=== PATIENT | male | born 1985 | race Caucasian/White ===

== ENCOUNTER 2021-03-14 17:05 | Emergency (ER) | payer MEDICAID ==
[~2021-03-14] VITALS: Ht 167.6 cm; Wt 68.0 kg
[2021-03-14 17:17] VITALS: BP_SYST 132
[2021-03-14 22:10] LABS: BASOPHILS % (AUTO) 0.3 % (0.0-2.0); EOSINOPHILS # (AUTO) 0.2 K/uL (0.0-0.4); EOSINOPHILS % (AUTO) 2.4 % (0.0-4.0); HEMATOCRIT 40.9 % (36-54); HEMOGLOBIN 14.2 g/dL (14.0-18.0); LYMPHOCYTES # (AUTO) 2.3 K/uL (1.0-5.5); MEAN CORPUSCULAR HEMOGLOBIN 29 pg (27-31); MEAN CORPUSCULAR HGB CONC 35 % (32-36); MEAN CORPUSCULAR VOLUME 85 fL (79.0-98.0); MONOCYTES # (AUTO) 0.7 K/uL (0.0-1.0); MONOCYTES % (AUTO) 9.2 % (1.7-9.3); NEUTROPHILS # (AUTO) 4.7 K/uL (1.8-7.7); NEUTROPHILS % (AUTO) 59.1 % (40.0-70.0); PLATELET COUNT (AUTO) 362 K/uL (130-430); RED BLOOD CELL COUNT(AUTO) 4.83 MIL/uL (4.2-6.2); RED CELL DISTRIBUTION WIDTH 14.5 % (9.0-15.0)
[2021-03-14 22:24] LABS: ANION GAP 7 (5-15); CALCIUM 9.1 mg/dL (8.4-11.0); CHLORIDE 99 mmol/L (98-107); CREATININE 0.82 mg/dL (0.55-1.30); GLUCOSE 90 mg/dL (70-99); POTASSIUM 3.8 mmol/L (3.5-5.1); SODIUM SERUM 136 mmol/L (136-145); UREA NITROGEN, BLOOD 14 mg/dL (8-21)
[2021-03-14 22:29] LABS: ALANINE AMINOTRANSFERASE 37 U/L (12-78); ALBUMIN 3.8 g/dL (3.4-4.8); ASPARTATE AMINOTRANSFERASE 29 U/L (10-37); GFR AFRICAN AMERICAN 138 mL/min (>90); TOTAL BILIRUBIN 0.5 mg/dL (0.0-1.0)
[2021-03-14 22:30] LABS: ALCOHOL, BLOOD < 3 mg/dL (<10)
[2021-03-15] MEDS ORDERED: HYDROcodone/ACETAMIN 5-325 MG TAB (NORCO/ VICODIN) PO PRN (05:30)
[2021-03-15] MEDS ORDERED: MORPHINE 2 MG/ML INJ. SYRINGE IVP PRN (05:30)
[2021-03-15] MEDS ORDERED: cefTRIAXone 1 GM IVPB PREMIX 50 ML IV SCH (05:30)
[2021-03-15] MEDS ORDERED: NALO4SPR NS (06:08)
[2021-03-15 06:18] VITALS: BP_SYST 123
[2021-03-15] MEDS ORDERED: metroNIDAZOLE 500 mg/NS 100 ML IV SCH (09:00)
== END 2021-03-15 06:19 | disposition home or self-care (01) ==
LOC: SED 17:05
DX: T40.601A Poisoning by unspecified narcotics, accidental (unintentional), initial encounter (principal); Y92.89 Other specified places as the place of occurrence of the external cause
CPT/HCPCS: 36415; 80053; 85025; 99285; G0482

== ENCOUNTER 2021-06-18 13:34 | Inpatient (IN) | payer MEDICAID, SELFPAY ==
[~2021-06-18] VITALS: Ht 170.2 cm; Wt 75.9 kg
[~2021-06-18 13:34] MED LIST: NALO4SPR NS
--- NOTE | 2021-06-18 13:40 | NUR ---
OUT TO TRIAGE ROOM TO TRIAGE PT, UNABLE TO LOCATE PT AT THIS TIME.
--- NOTE | 2021-06-18 13:53 | NUR ---
UNABLE TO LOCATE PT IN TRIAGE ROOM
[2021-06-18 14:00] VITALS: BP_SYST 130
[2021-06-18] MEDS ORDERED: VANCOMYCIN HCL 1,000 MG in NS 250 ML IV ONE (15:30)
--- NOTE | 2021-06-18 15:42 | NUR ---
BROUGHT BACK TO [facility] AND REPORT GIVEN TO RONNIE
--- NOTE | 2021-06-18 15:44 | NUR ---
pt. to bathroom to give urine sample and change into a gown
--- NOTE | 2021-06-18 16:00 | NUR ---
pt. remails in bathroom, stated still changing and cleaning up
--- NOTE | 2021-06-18 16:30 | NUR ---
unable to place IV or draw blood, pt. has scaring from 18 years of drug use, pt. 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
[2021-06-18 16:41] LABS: CLARITY/URINE CLEAR (CLEAR); GLUCOSE,URINE NEGATIVE (NEGATIVE); KETONES,URINE NEGATIVE (NEGATIVE); LEUKOCYTE ESTERASE ,URINE TRACE (NEGATIVE); NITRITE, URINE NEGATIVE (NEGATIVE); PROTEIN URINE 1+ (NEGATIVE)
[2021-06-18] MEDS ORDERED: LR 1,000 ML IV ONE (16:45)
[2021-06-18] MEDS ORDERED: ONDANSETRON HCL 4 MG/2 ML VIAL IVP PRN ×2 (16:45→22:00)
[2021-06-18 16:47] LABS: BILIRUBIN,URINE NEGATIVE (NEGATIVE); BLOOD, URINE TRACE (NEGATIVE); COLOR,URINE AMBER (YELLOW)
[2021-06-18 16:48] LABS: BACTERIA,URINE FEW /HPF (None Seen); MUCUS,URINE 1+ /LPF (None Seen)
[2021-06-18] MEDS ORDERED: VANCOMYCIN HCL 1000 MG/VIAL IV ONE (17:13)
[2021-06-18 17:39] LABS: BASOPHILS % (AUTO) 0.2 % (0.0-2.0); EOSINOPHILS # (AUTO) 0.1 K/uL (0.0-0.4); EOSINOPHILS % (AUTO) 0.6 % (0.0-4.0); HEMATOCRIT 37.6 % (36-54); LYMPHOCYTES # (AUTO) 1.7 K/uL (1.0-5.5); LYMPHOCYTES % (AUTO) 8.7 % (20.5-51.5); MEAN CORPUSCULAR HEMOGLOBIN 28 pg (27-31); MEAN CORPUSCULAR HGB CONC 35 % (32-36); MEAN CORPUSCULAR VOLUME 82 fL (79.0-98.0); MONOCYTES # (AUTO) 1.5 K/uL (0.0-1.0); MONOCYTES % (AUTO) 8.1 % (1.7-9.3); NEUTROPHILS # (AUTO) 15.8 K/uL (1.8-7.7); NEUTROPHILS % (AUTO) 82.4 % (40.0-70.0); PLATELET COUNT (AUTO) 425 K/uL (130-430); RED CELL DISTRIBUTION WIDTH 13.4 % (9.0-15.0); WHITE BLOOD COUNT (AUTO) 19.2 K/uL (4.8-10.8)
--- NOTE | 2021-06-18 17:39 | NUR ---
spoke with Dr. De mirza to prepare pt for surgery
[2021-06-18 17:47] LABS: CREATININE 0.86 mg/dL (0.55-1.30); POTASSIUM 4.1 mmol/L (3.5-5.1)
--- NOTE | 2021-06-18 17:50 | NUR ---
Dr. Kc here and discussed surgery with pt., consent signed
[2021-06-18 17:52] LABS: ALBUMIN 3.1 g/dL (3.4-4.8); TOTAL BILIRUBIN 0.7 mg/dL (0.0-1.0)
--- NOTE | 2021-06-18 19:30 | NUR ---
Pt in bed, resting with eyes closed. Hooked to the monitor. Vital signs stable. With ongoing IV antibiotic on PIV right arm.
[2021-06-18] MEDS ORDERED: NS IRRIG SOLN 1000 ML IR ONE (21:30)
[2021-06-18] MEDS ORDERED: BUPIVACAINE /PF 0.75% 10 ML VIAL INJ ONE (21:30)
[2021-06-18] MEDS ORDERED: NS 1000 ML IV.SOLN IV ONE (21:30)
--- NOTE | 2021-06-18 21:45 | NUR ---
Patient transfered to OR with RN and anesthesiologist.
[2021-06-18] MEDS ORDERED: METOCLOPRAMIDE HCL 10 MG/2 ML VIAL IVP PRN (22:00)
[2021-06-18] MEDS ORDERED: NORMAL SALINE 5 ML DISP.SYRIN IVF SCH (22:00)
[2021-06-18] MEDS ORDERED: fentaNYL CITRATE/PF 100 MCG/2 ML AMP IVP PRN ×2 (22:00)
[2021-06-18] MEDS ORDERED: KETOROLAC TROMETHAMINE 30 MG VIAL IVP PRN (22:45)
[2021-06-18] MEDS ORDERED: metroNIDAZOLE 250 MG TABLET PO SCH (22:45)
[2021-06-18] MEDS ORDERED: HYDROcodone/ACETAMIN 10-325 MG TAB PO PRN (22:45)
[2021-06-18 23:13] VITALS: BP_SYST 111
--- NOTE | 2021-06-18 23:56 | NUR ---
F/U ON ADMIT STATUS S/W Angela in admitting (ext [phone]) and informed patient is on our unit; Presently patient is on [facility] and there is an order to admit to [facility] as inpatient. She informed me that she will f/u (presently unable to complete admit d/t had surgery).
[2021-06-19] MEDS ORDERED: CEFAZOLIN 2 GM IVPB PREMIX 50 ML IV ONE (00:01)
--- NOTE | 2021-06-19 04:37 | NUR ---
Paged Dr. Kc [phone]
--- NOTE | 2021-06-19 05:03 | NUR ---
Nutrition Update Marcos Scale 18 noted. Pt admitted for Thigh abscesses Diet: regular BMI: 26.2 kg/m2 RD to follow per nutrition care standards.
--- NOTE | 2021-06-19 05:21 | NUR ---
AMA PATIENT REQUESTED TO LEAVE [facility]. HE WAS EVALUATED AND OBSERVED TO BE ABLE TO AMBULATE ON HIS OWN. PATIENTS BANDAGES WHERE DRY AND HE WAS NOTED TO NOT HAVE ANY DRAINAGE. PHYSICIAN THAT PREFORMED HIS SURGERY WAS CONTACTED AND ANTIBIOTICS ORDERS WERE SENT TO [facility] IN [place]. PATIENT WAS GIVEN THE INFORMATION. PATIENT WAS ALSO GIVEN INFORMATION ABOUT WHAT COULD HAPPEN IF HE DID LEAVE AND THE POSSIBILITY FOR INFECTION AND SEPSIS.
[2021-06-19] MEDS ORDERED: ceFAZolin SODIUM 2 GM in D5W 100 ML IV SCH (06:00)
[2021-06-19] MEDS ORDERED: MULTIVITAMINS TAB 1 TABLET PO SCH (09:00)
--- NOTE | 2021-06-20 10:12 | NUR ---
NOTIFIED OF POSITIVE BLOOD CULTURES, MESSAGE LEFT FOR PT. TO CALL ER, LAB RESULTS TAKEN TO OR AND GIVEN TO DR. FAGAN PER DR. WOMACK
--- NOTE | 2021-06-20 11:29 | NUR ---
spoke with Dr. Contreras and called emergency contact per hi request; spoke with pts. mother to call hospital regarding need for antobiotics, message left earlier for pt. to call ER on another phone number
== END 2021-06-19 05:33 | disposition left against medical advice (07) | DRG 383 ==
LOC: SED 13:34 → SDS 16:42 → SMU 16:43 → SDS 21:45
PROVIDERS: ADMIT Surgery; ATTEND Surgery
PROC: 0HBHXZZ Excision of Right Upper Leg Skin, External Approach (ICD-10-PCS; 2021-06-18)
PROC: 0HBJXZZ Excision of Left Upper Leg Skin, External Approach (ICD-10-PCS; principal; 2021-06-18 21:42)
DX: L02.416 Cutaneous abscess of left lower limb (principal); L97.129 Non-pressure chronic ulcer of left thigh with unspecified severity; R65.10 Systemic inflammatory response syndrome (SIRS) of non-infectious origin without acute organ dysfunction; F11.20 Opioid dependence, uncomplicated; R00.0 Tachycardia, unspecified; L02.415 Cutaneous abscess of right lower limb; Z20.822 Contact with and (suspected) exposure to COVID-19; Z59.00 Homelessness unspecified; Z79.899 Other long term (current) drug therapy; Z86.19 Personal history of other infectious and parasitic diseases
CPT/HCPCS: 36415; 80053; 81000; 83605; 85025; 87040; 87070; 87070-TC; 87075-TC; 87491; 87591; 88304; 96365; 96375; 99285; J0690; J2405; J3370; J3490; J7030; J7060

== ENCOUNTER 2021-07-15 14:36 | Emergency (ER) | payer MEDICAID, SELFPAY ==
[~2021-07-15] VITALS: Ht 167.6 cm; Wt 68.0 kg
[2021-07-15 14:51] VITALS: BP_SYST 126
[2021-07-15] MEDS ORDERED: PSEU30TA36 PO (16:01)
[2021-07-15] MEDS ORDERED: IBUP-1971 PO (16:01)
[2021-07-15] MEDS ORDERED: PRED20TA PO (16:02)
[2021-07-15 16:05] VITALS: BP_SYST 126
== END 2021-07-15 16:05 | disposition home or self-care (01) ==
LOC: SED 14:36
DX: J02.9 Acute pharyngitis, unspecified (principal); Z79.899 Other long term (current) drug therapy; Z79.52 Long term (current) use of systemic steroids
CPT/HCPCS: 36415; 86403; 87081; 99283